=== PATIENT | male | born 1945 | race African-American/Black ===

== ENCOUNTER 2019-07-24 02:35 | Emergency (ER) | payer OTHER ==
[~2019-07-24] VITALS: Ht 182.9 cm; Wt 90.7 kg
--- NOTE | 2019-07-24 02:36 | NUR ---
ED Nurse Note: pt brought in by [facility] from home c/c chest pain on left side x 45 min, pt was watching TV at the time. nitro spray 0.4mg x 3 given by medic, ASA 81mg x 5 = 405mg taken at home. TE=036. pt AA&ox4, gcs=15, skin warm and dry, resp even and unlabored on RA, -n/v/d, ambulates w/steady gait. VSS. will cont monitor.
[2019-07-24 02:41] VITALS: BP 113/83
[2019-07-24 02:56] LABS: BASOPHILS % (AUTO) 1.7 % (0.0-2.0); EOSINOPHILS % (AUTO) 3.4 % (0.0-3.0); HEMATOCRIT 47.9 % (42.0-52.0); HEMOGLOBIN 16.1 G/DL (14.2-18.0); LYMPHOCYTES % (AUTO) 49.5 % (20.0-45.0); MEAN CORPUSCULAR VOLUME 94 FL (80-99); MONOCYTES % (AUTO) 15.5 % (1.0-10.0); NEUTROPHILS % (AUTO) 29.9 % (45.0-75.0); PLATELET COUNT 203 K/UL (150-450); RED BLOOD COUNT 5.08 M/UL (4.70-6.10); RED CELL DISTRIBUTION WIDTH 11.4 % (11.6-14.8); WHITE BLOOD COUNT 5.8 K/UL (4.8-10.8)
[2019-07-24 03:10] LABS: INR 0.9 (0.9-1.1)
--- NOTE | 2019-07-24 03:22 | Emergency Room Report ---
History of Present Illness General Chief Complaint: Chest Pain Source: Patient (Davi Gloria MD) Present Illness HPI Disclaimer: Please note that this report is being documented using [employer] technology. This can lead to erroneous entry secondary to incorrect interpretation by the dictating instrument. HPI: 73-year-old male with a history of CAD status post triple-vessel CABG 1990 , prostate cancer status post radiation, hypertension, hyperlipidemia, former smoker, former alcohol use presents for evaluation of chest pain. He was in his usual state of health until approximately 10 PM last evening when he developed sharp stabbing left-sided chest pain that was nonradiating. No associated shortness of breath, no pain in the back, no diaphoresis or lightheadedness. The patient took 5 tablets of 81 mg aspirin but could not find his nitroglycerin. He took an [place] begin leaving that this was acid reflux. Called EMS who gave him 3 sublingual nitroglycerin which have now resolved his pain. He felt that each tablet helped his pain lessened. He denies any recent illness. He did recently undergo laparoscopic bilateral luminal hernia repair in early June. He did note one episode of exertional dyspnea over the past week but attributed to deconditioning. Denies any lower extremity swelling or history of CHF. He is currently chest pain-free and returned to his baseline health. The pain he was experiencing is not like his previous ND as he described his ND pain as pressure and this pain as sharp. He states his last angiogram showed no lesions and this was performed at the [facility] in 2017 PMH: CAD, hypertension, hyperlipidemia, prostate cancer status post radiation PSH: Inguinal hernia repair, CABG Allergies: Denies Social Hx: Quit tobacco 1998, quit alcohol 1997 (Davi Gloria MD) Allergies: Coded Allergies: No Known Allergies (Unverified , 07/24/19) Nursing Documentation-PMH Hx Cardiac Problems: Yes - triple bypass 1991, angina (Davi Gloria MD) Review of Systems All Other Systems: negative except mentioned in HPI (Davi Gloria MD) Physical Exam Vital Signs Date Time Temp Pulse Resp B/P (MAP) Pulse Ox O2 Delivery O2 Flow Rate FiO2 07/24/19 02:29 97.9 68 16 144/76 (98) 98 Room Air General: Awake and alert, no acute distress HEENT: NC/AT. EOMI. Neck: Supple, trachea midline Chest Wall: No tenderness, no deformity, midline sternotomy scar is clean dry and intact Cardiovascular: RRR. S1 and S2 normal. No murmur appreciated Resp: Normal work of breathing. No cough, wheezing or crackles appreciated Abdomen: Abdomen is soft, nondistended. Nontender Skin: Intact. No abrasions, laceration or rash over the exposed skin MSK: Normal tone and bulk. Moving all extremities. No obvious deformity. Neuro: Awake and alert. Mentating appropriately. (Davi Gloria MD) Procedures Critical Care Time Critical Care Time Total critical care time: Approximately 31 minutes Due to a high probability of clinically significant, life threatening deterioration, the patient required the highest level of preparedness to intervene emergently and I personally spent this critical care time directly and personally managing the patient. This critical care time included obtaining a history, examining the patient, pulse oximetry, ordering and reviewing studies , ordering treatments, evaluating response to treatment and updating management plan as needed, frequent reassessment and discussion with other providers as well as arranging for ultimate disposition. This critical to care time was performed to assess and manage the high probability of life-threatening deterioration that could result in multiorgan failure. This critical care time is separate from the separately billable procedures and treating other patients. (Davi Gloria MD) Medical Decision Making Diagnostic Impression: Primary Impression: Chest pain Additional Impression: ACS (acute coronary syndrome) ER Course Is a 73-year-old male with a history of CAD status post CABG presenting for evaluation of sudden onset chest pain now resolved. Patient has received aspirin prior to arrival and 3 sublingual nitroglycerin tablets which have relieved his symptoms. His EKG on arrival shows sinus rhythm with a normal axis there are inferior Q waves there are no obvious ST segment changes to indicate acute ischemia however there is no prior for comparison. Will obtain labs including cardiac enzymes, chest x-ray. Depending on lab results and patient condition on reevaluation Laboratory Tests Test 07/24/19 02:45 07/24/19 05:30 White Blood Count 5.8 K/UL (4.8-10.8) Red Blood Count 5.08 M/UL (4.70-6.10) Hemoglobin 16.1 G/DL (14.2-18.0) Hematocrit 47.9 % (42.0-52.0) Mean Corpuscular Volume 94 FL (80-99) Mean Corpuscular Hemoglobin 31.7 PG (27.0-31.0) H Mean Corpuscular Hemoglobin Concent 33.6 G/DL (32.0-36.0) Red Cell Distribution Width 11.4 % (11.6-14.8) L Platelet Count 203 K/UL (150-450) Mean Platelet Volume 7.2 FL (6.5-10.1) Neutrophils (%) (Auto) 29.9 % (45.0-75.0) L Lymphocytes (%) (Auto) 49.5 % (20.0-45.0) H Monocytes (%) (Auto) 15.5 % (1.0-10.0) H Eosinophils (%) (Auto) 3.4 % (0.0-3.0) H Basophils (%) (Auto) 1.7 % (0.0-2.0) Prothrombin Time 10.1 SEC (9.30-11.50) Prothrombin Time INR 0.9 (0.9-1.1) PTT 25 SEC (23-33) Sodium Level 141 MMOL/L (136-145) Potassium Level 4.0 MMOL/L (3.5-5.1) Chloride Level 108 MMOL/L (98-107) H Carbon Dioxide Level 23 MMOL/L (21-32) Anion Gap 10 mmol/L (5-15) Blood Urea Nitrogen 7 mg/dL (7-18) Creatinine 1.0 MG/DL (0.55-1.30) Estimate Glomerular Filtration Rate mL/min (>60) Glucose Level 117 MG/DL (74-106) H Calcium Level 8.9 MG/DL (8.5-10.1) Total Bilirubin 0.6 MG/DL (0.2-1.0) Aspartate Amino Transferase (AST) 24 U/L (15-37) Alanine Aminotransferase (ALT) 17 U/L (12-78) Alkaline Phosphatase 64 U/L (46-116) Total Creatine Kinase 157 U/L (26-308) Creatine Kinase MB 2.1 NG/ML (0.0-3.6) Creatine Kinase MB Relative Index 1.3 Troponin I 0.006 ng/mL (0.000-0.056) 0.663 ng/mL (0.000-0.056) Pro-B-Type Natriuretic Peptide 70 pg/mL (0-125) Total Protein 7.6 G/DL (6.4-8.2) Albumin 3.9 G/DL (3.4-5.0) Globulin 3.7 g/dL Albumin/Globulin Ratio 1.1 (1.0-2.7) (Davi Gloria MD) ER Course This patient was turned over to me by Dr. Gloria. The patient had presented with NSTEMI. The patient has a history of CABG and had a classic presentation of angina. He also had prodromal unstable angina prior to his presentation to the emergency department. It was felt in consultation with a rail loader at this patient would benefit from an angiogram and cardiac catheterization. Therefore, this patient was transferred to [facility] for higher level of care and to undergo specialty care by interventional cardiology. The patient remained stable in the emergency department and was transferred for higher level of care to [facility]. Given this patient was going to undergo angiogram, I did change the Lovenox order to a heparin drip and gave the patient oral Plavix. (Leigh Lutz DO) EKG Diagnostic Results EKG Time: 02:32 Rate: normal Rhythm: NSR ST Segments: no acute changes Other Impression Sinus rhythm, normal axis, normal intervals, no acute ST segment changes. Q waves present in III, aVF, V3 (Davi Gloria MD) Rhythm Strip Diag. Results Rhythm Strip Time: 02:32 EP Interpretation: yes Rate: 60s Rhythm: NSR, no PVC's, no ectopy (Davi Gloria MD) Chest X-Ray Diagnostic Results Chest X-Ray Diagnostic Results : Chest X-Ray Ordered: Yes # of Views/Limited/Complete: 1 View Indication: Chest Pain EP Interpretation: Yes Interpretation: no consolidation, no effusion, no pneumothorax Impression: No acute disease - Mild cardiomegaly, previous sternotomy Electronically Signed by: Electronically signed by Dr. Davi Gloria (Davi Gloria MD) Reevaluation Time: 06:28 Last Vital Signs Date Time Temp Pulse Resp B/P (MAP) Pulse Ox O2 Delivery O2 Flow Rate FiO2 07/24/19 02:41 68 16 Room Air 07/24/19 02:41 97.9 113/83 99 Status: improved Reevaluation Impression Initial troponin was negative and the patient's chest pain returned but was then relieved by a GI cocktail. The patient believe that his pain is secondary to GERD/gastritis however second troponin returned positive. He is currently chest pain-free. We will repeat an EKG and will require admission to the hospital for further cardiac work-up. Lovenox ordered. Vitals are stable, he will be admitted to SDU. 0650: Repeat EKG shows sinus bradycardia, the same inferior Q waves as the initial EKG , no ST segment changes. Patient has been bradycardic on telemetry monitoring and states he has a known history of bradycardia since he was young. He remains chest pain-free but now states that he remembers other episodes of exertional dyspnea during the week. (Davi Gloria MD) Disposition: ADMITTED INPATIENT Condition: Serious Referrals: MACK FARIA (PCP) Davi Gloria MD Jul 24, 2019 03:22 Leigh Lutz DO Jul 24, 2019 08:16
[2019-07-24 03:24] LABS: ANION GAP 10 mmol/L (5-15); BLOOD UREA NITROGEN 7 mg/dL (7-18); CALCIUM 8.9 MG/DL (8.5-10.1); CARBON DIOXIDE 23 MMOL/L (21-32); CHLORIDE 108 MMOL/L (98-107); SODIUM 141 MMOL/L (136-145)
[2019-07-24 03:38] LABS: ALANINE AMINOTRANSFERASE 17 U/L (12-78); ALBUMIN 3.9 G/DL (3.4-5.0); ALBUMIN/GLOBULIN RATIO 1.1 (1.0-2.7); ALKALINE PHOSPHATASE 64 U/L (46-116); ASPARTATE AMINO TRANSFERASE 24 U/L (15-37); BILIRUBIN,TOTAL 0.6 MG/DL (0.2-1.0); CKMB 2.1 NG/ML (0.0-3.6); CREATINE KINASE 157 U/L (26-308)
[2019-07-24] MEDS ORDERED: Dicyclomine HCl 10mg/5ml oral soln ORAL ONE (04:00)
[2019-07-24] MEDS ORDERED: Mylanta II UD 30ml ORAL ONE (04:00)
[2019-07-24] MEDS ORDERED: Lidocaine 2% Visc 15ml soln ORAL ONE (04:00)
[2019-07-24 04:15] VITALS: BP 116/62
--- NOTE | 2019-07-24 04:15 | NUR ---
ED Nurse Note: Pt continues to rest inb ed quietly, awake and alert, denies any pain at this time, saline lock intact and patent, pt remains on cardiac monitoring, in karthik rhythm with heart rate at 45 to 55, md is aware, no sob or labored breathing, will continue to closely monitor and re-due troponin level at desired time.
[2019-07-24 06:00] VITALS: BP 121/68
[2019-07-24] MEDS ORDERED: Heparin1,000 units/500ml Premix(Conc:2 units/ml) IV ONE (06:30)
--- NOTE | 2019-07-24 07:30 | NUR ---
ED Nurse Note: Receivd patient in bed, patient resting comfortably, reports chest pain is settled down now, patient is a/o x4, breathing unlabored and even, speaking in full sentences, on handicapped teacher.
[2019-07-24 07:34] VITALS: BP 124/71
[2019-07-24] MEDS ORDERED: Enoxaparin 100mg Inj SUBQ ONE (07:42)
[2019-07-24] MEDS ORDERED: Heparin 25,000u/D5W 500ml 500 ML IV SCH ×2 (07:45→09:45)
[2019-07-24] MEDS ORDERED: Heparin 5000 units/ml inj IV ONE (07:45)
[2019-07-24] MEDS ORDERED: Enoxaparin 100mg Inj SUBQ SCH (09:00)
--- NOTE | 2019-07-24 10:08 | NUR ---
ED Nurse Note: attempted to give report, Ver[place] PATIÑO at [facility] will call back for report.
--- NOTE | 2019-07-24 10:24 | NUR ---
ED Nurse Note: report given to Ver[place] PATIÑO at [facility], endorsed all plan of care to Verona PATIÑO.
[2019-07-24 10:42] VITALS: BP 133/78
--- NOTE | 2019-07-24 10:54 | Diagnostic Imaging Report ---
Indication: Chest pain Comparison: None A single view chest radiograph was obtained. Findings: Cardiomediastinal appearance is within normal limits for age. Sternotomy is noted. The lungs are clear. Pulmonary vascularity is appropriate. The diaphragmatic contour is smooth and costophrenic angles are sharp. No pleural effusions are identified. The bones are osteopenic. Impression: No acute findings
[2019-07-24 12:23] VITALS: BP 133/78
--- NOTE | 2019-07-24 12:23 | NUR ---
ED Nurse Note: REPORT GIVEN TO REBEKA, THE RN FROM [facility]. PT. IS AWARE OF THE TRANSFER. PT. LEFT WITH ALL OF HIS BELONGINGS. NO S/S OF ACUTE DISTRESS NOTED DURING THE DISCHARGE.
== END 2019-07-24 12:45 | disposition short-term general hospital (02) ==
LOC: EDBD 02:35 → EMR 02:53 → EDBEDREQ 07:11 → EDBEDREQSVC 08:17 → EMR 12:45
DX: I24.9 Acute ischemic heart disease, unspecified (principal); I25.119 Atherosclerotic heart disease of native coronary artery with unspecified angina pectoris; I10 Essential (primary) hypertension; Z95.1 Presence of aortocoronary bypass graft; Z87.891 Personal history of nicotine dependence; E78.5 Hyperlipidemia, unspecified; Z85.46 Personal history of malignant neoplasm of prostate; I25.2 Old myocardial infarction
CPT/HCPCS: 36415; 71045; 80053; 82550; 82553; 83880; 84484; 85025; 85610; 85730; 93005; 96365; 96366; 96375; 99291; J1644